=== PATIENT | female | born 1985 | race Caucasian/White ===

== ENCOUNTER 2020-04-01 14:15 | Outpatient (CLI) | payer OTHER ==
[2020-04-01] MEDS ORDERED: None at this time (15:11)
== END 2020-04-01 23:59 | disposition home or self-care (01) ==
LOC: STAR 14:15
PROVIDERS: ATTEND Internal Medicine Geriatric Medicine
DX: Z02.9 Encounter for administrative examinations, unspecified (principal)

== ENCOUNTER 2020-04-13 05:51 | Day surgery (SDC) | payer OTHER ==
[~2020-04-13] VITALS: Ht 165.1 cm; Wt 56.1 kg
[~2020-04-13 05:51] MED LIST: None at this time
[2020-04-13] MEDS ORDERED: LACTATED RINGERS 1,000 ML IV SCH (06:28)
[2020-04-13 06:30] VITALS: BP 113/75
[2020-04-13] MEDS ORDERED: CHLORHEXIDINE 15 ML UDC MM ONE (06:30)
[2020-04-13 06:44] LABS: HCG UR SG 1.011 (1.003-1.030)
[2020-04-13] MEDS ORDERED: PROPOFOL 100 ML ONE (08:36)
[2020-04-13] MEDS ORDERED: HYDROmorphone 2 MG/ML, 1ML IVPush PRN (09:00)
[2020-04-13] MEDS ORDERED: FENTANYL PF 100 MCG/2ML IV PRN (09:00)
[2020-04-13] MEDS ORDERED: ACETAMINOPHEN 325 MG TABLET PO PRN (09:00)
[2020-04-13] MEDS ORDERED: OXYcodone 5 MG/5 ML ORAL.SOL UDC PO PRN (09:00)
[2020-04-13] MEDS ORDERED: ALBUTEROL SULFATE 2.5 MG/3 ML NPPB PRN (09:00)
[2020-04-13] MEDS ORDERED: LABETALOL 5MG/ML, 20ML IV PRN (09:00)
[2020-04-13] MEDS ORDERED: PROMETHAZINE 25 MG/ML, 1ML IV PRN (09:00)
[2020-04-13] MEDS ORDERED: MEPERIDINE/PF 25MG/0.5ML IVPush PRN (09:00)
[2020-04-13] MEDS ORDERED: KETOROLAC 30 MG/1 ML IV PRN (09:00)
[2020-04-13] MEDS ORDERED: DIAZEPAM 5 MG/ML, 2ML IVPush PRN (09:00)
[2020-04-13] MEDS ORDERED: hydrALAzine 20 MG/ML, 1ML IV PRN (09:00)
== END 2020-04-13 09:50 | disposition home or self-care (01) ==
LOC: OUT 05:51
PROVIDERS: ATTEND Internal Medicine Geriatric Medicine
DX: K50.012 Crohn's disease of small intestine with intestinal obstruction (principal); Z11.59 Encounter for screening for other viral diseases; K91.30 Postprocedural intestinal obstruction, unspecified as to partial versus complete; K63.3 Ulcer of intestine; K52.89 Other specified noninfective gastroenteritis and colitis; Z72.89 Other problems related to lifestyle; Z88.1 Allergy status to other antibiotic agents; Z90.49 Acquired absence of other specified parts of digestive tract; Z98.890 Other specified postprocedural states; Z82.49 Family history of ischemic heart disease and other diseases of the circulatory system
CPT/HCPCS: 36415; 45380; 45386; 74018; 81025; 87635; 88305; C1725; J2704; J7120; 76000